=== PATIENT | male | born 1945 | race Caucasian/White ===

== ENCOUNTER 2017-04-17 12:00 | Inpatient (IN) | payer MEDICARE, OTHER ==
[~2017-04-17] VITALS: Ht 175.3 cm; Wt 109.0 kg
[2017-04-24] VITALS (19 sets, daily range): BP systolic 103–124; BP diastolic 58–69; PULSE 49–63; RESP 13–21; Ht 175.3 cm; Wt 109.0 kg
[2017-04-24] MEDS ORDERED: SEVOFLURANE 15 MIN ONE (07:00)
[2017-04-24] MEDS ORDERED: CARV25TA79 PO (12:34)
[2017-04-24] MEDS ORDERED: VALS1TAB80 PO (12:34)
[2017-04-24] MEDS ORDERED: ASPI-664 PO (12:35)
[2017-04-24] MEDS ORDERED: BEN25 PO (12:36)
[2017-04-24] MEDS ORDERED: CEFAZOLIN 2 GM/50 ML (PMX) 50 ML IVPB SCH (13:00)
[2017-04-24] MEDS ORDERED: LACTATED RINGER'S 1,000 ML IV* SCH (13:00)
[2017-04-24] MEDS ORDERED: CEFAZOLIN 1 GM INJ ONE ×2 (15:19→16:10)
[2017-04-24] MEDS ORDERED: SURGIFOAM POWDER 1 GM KIT ONE (15:19)
[2017-04-24] MEDS ORDERED: BUPIVACAINE 0.25% (MPF) 30 ML INJ ONE (15:19)
[2017-04-24] MEDS ORDERED: HEPARIN 1000 UNITS/ML 10 ML INJ ONE (15:20)
[2017-04-24] MEDS ORDERED: CA CHLORIDE 10% 10 ML SYRINGE ONE (15:20)
[2017-04-24] MEDS ORDERED: BUPIVACAINE 0.5%/EPI (SDV) 10 ML INJ ONE (15:20)
[2017-04-24] MEDS ORDERED: THROMBIN 5000 UNIT VIAL ONE (15:20)
[2017-04-24] MEDS: D5W-0.45 NACL + KCL 20 MEQ 1,000 ML IV SCH ×2 (15:35→20:21)
--- NOTE | 2017-04-24 15:35 | HPN ---
Date/Time of Note Date/Time of Note DATE: 04/24/17 TIME: 15:34 Interval H&P Admission Note Pt. seen H&P reviewed: No system changes ADAM FUENTES PA-C Apr 24, 2017 15:35
[2017-04-24] MEDS ORDERED: DIPHENHYDRAMINE 50 MG INJ IV PRN ×2 (16:00→16:30)
[2017-04-24] MEDS ORDERED: HYDROmorphONE 1 MG/ML SYG IV PRN (16:00)
[2017-04-24] MEDS ORDERED: BISACODYL 10 MG SUPP PR PRN (16:00)
[2017-04-24] MEDS ORDERED: CEPASTAT LOZENGE MT PRN (16:00)
[2017-04-24] MEDS ORDERED: NALOXONE (0.4 MG/ML) INJ IV PRN (16:00)
[2017-04-24] MEDS ORDERED: ZOLPIDEM 5 MG TAB PO PRN (16:00)
[2017-04-24] MEDS ORDERED: AL HYDROX/MG HYDROX/SIMETH 30 ML CUP PO PRN (16:00)
[2017-04-24] MEDS: CEFAZOLIN 1 GM/50 ML (PMX) 50 ML IVPB SCH (16:00)
[2017-04-24] MEDS ORDERED: CYCLOBENZAPRINE 10 MG TAB PO PRN (16:00)
[2017-04-24] MEDS ORDERED: HYDROCODONE/APAP (5/325) TAB PO PRN ×2 (16:00)
[2017-04-24] MEDS ORDERED: ONDANSETRON 4 MG INJ IV PRN ×2 (16:00→16:30)
[2017-04-24] MEDS ORDERED: ACETAMINOPHEN 325 MG TAB PO PRN (16:00)
[2017-04-24] MEDS ORDERED: HYDROmorphONE 0.2 MG/ML PCA IV SCH (16:00)
[2017-04-24] MEDS ORDERED: PROPOFOL 20 ML ONE (16:08)
[2017-04-24] MEDS ORDERED: LIDOCAINE 2% (SDV) 5 ML INJ ONE (16:08)
[2017-04-24] MEDS ORDERED: GLYCOPYRROLATE 0.4 MG INJ ONE ×3 (16:08→17:53)
[2017-04-24] MEDS ORDERED: ROCURONIUM 50 MG INJ ONE ×2 (16:08→17:53)
[2017-04-24] MEDS ORDERED: SUCCINYLCHOLINE CHLORIDE 100 MG/5 ML SYG IV ONE (16:08)
[2017-04-24] MEDS ORDERED: NEOSTIGMINE 3 MG/3 ML SYRINGE ONE ×2 (16:08→17:53)
[2017-04-24] MEDS ORDERED: MEPERIDINE 100 MG INJ ONE (16:08)
[2017-04-24] MEDS ORDERED: FENTAnyl 50 MCG/ML VIAL IV PRN ×3 (16:30)
[2017-04-24] MEDS ORDERED: MEPERIDINE 25 MG INJ IV PRN (16:30)
[2017-04-24] MEDS ORDERED: METOCLOPRAMIDE 10 MG INJ IV PRN (16:30)
[2017-04-24] MEDS ORDERED: hydrALAzine 20 MG INJ IV PRN (16:30)
[2017-04-24] MEDS ORDERED: LABETALOL HCL 20MG INJ IV PRN (16:30)
[2017-04-24] MEDS ORDERED: HYDROmorphONE (0.2 MG/ML) 10ML SYG IV PRN ×2 (16:30)
[2017-04-24] MEDS ORDERED: OXYCODONE/ACETAMINOPHEN (5/325) TAB PO PRN ×2 (16:30)
[2017-04-24] MEDS ORDERED: MIDAZOLAM 1 MG/ML 2 ML INJ IV PRN (16:30)
[2017-04-24] MEDS ORDERED: EPHEDrine SULFATE 50 MG/5 ML SYG IV PRN (16:30)
[2017-04-24] MEDS ORDERED: ATROPINE 1 MG/10 ML SYRINGE ONE (16:52)
[2017-04-24] MEDS ORDERED: ONDANSETRON 4 MG INJ ONE (18:20)
[2017-04-24] MEDS ORDERED: POLYMYXIN/BACITRACIN 1L IRRIG IRR ONE (18:41)
--- NOTE | 2017-04-24 19:11 | SIPON ---
Date/Time of Note Date/Time of Note DATE: 04/24/17 TIME: 19:09 Operative Report Preoperative Diagnosis L3-5 stenosis Postoperative Diagnosis L3-5 stenosis Operation/Procedure Performed L3-5 decompression Surgeon Kelley Kinney assist: ADAM FUENTES PA-C Anesthesia Type: general Estimated Blood Loss: 50 - 100 ml's Transfusion Required: no Specimens L3, L4 spinous process Grafts/Implants: none Complications: no DONTA LUCIO MD Apr 24, 2017 19:11
[2017-04-24] MEDS: HYDROmorphONE (0.2 MG/ML) 10ML SYG IV PRN ×3 (19:24→19:36)
--- NOTE | 2017-04-24 20:13 | OPR ---
DATE OF OPERATION: 04/24/2017 PREOPERATIVE DIAGNOSES: 1. Degenerative lumbar scoliosis. 2. L3-4, L4-5 spinal stenosis with radiculopathy. 3. Prostate cancer. POSTOPERATIVE DIAGNOSES: 1. Degenerative lumbar scoliosis. 2. L3-4, L4-5 spinal stenosis with radiculopathy. 3. Prostate cancer. 4. Extradural spinal cyst, intraspinal. PROCEDURES: 1. Central decompressive laminectomy at L3-4 and L4-5 with decompression L3, L4, L5 nerve roots bilaterally. 2. Use of C-arm flash with interpretation without radiologist present. 3. Intraoperative neuro monitoring (2 hours 15 minutes). PRIMARY SURGEON: Dr. Reymundo Benson. THREADING MACHINE TENDER: JEANNETTE Locke. NEED FOR DIRECTOR OF VOCATIONAL TRAINING: A medical or surgical instrument maker was required to retract the neurovascular elements. FINDINGS: Neuro monitoring at the start of the case revealed left L3 and L4 amplitude down 20 percent, left L5 amplitude down 10 percent, right L4 amplitude down 30 percent, right L3 and L5 amplitude down 40 percent. At the end of the case nerve signal returned to normal. Patient had degenerative scoliosis. Patient has severe stenosis with thickening of ligamentum flavum. There appears to be epidural, extradural, intraspinal cyst at both levels causing adherence of the ligamentum to the dura. ESTIMATED BLOOD LOSS: 100 cc. DRAINS: One. SPECIMENS: L3-L4 spinous process. COMPLICATIONS: Procedure none. ANESTHESIOLOGIST: Dr. Mustafa. TYPE OF ANESTHESIA: General. INDICATION FOR PROCEDURE: This is a 72-year-old gentleman with degenerative scoliosis and spinal stenosis. He failed nonoperative measures, therefore, I recommended proceeding with the above mentioned surgery. Preoperatively, discussed risks, benefits, alternatives, he understood, wished to proceed. OPERATIVE PROCEDURE: The patient was identified in the preoperative holding area, given Ancef antibiotics in the operating room, where he was successfully placed under general anesthesia. Neuro monitors were placed. Sequential compressive devices were applied. Camejo catheter was introduced. Neural monitor was utilized during the procedure for 2 hours and 15 minutes to include SSEP, MEP, and EMG. This was performed by [employer]. Start time was 4:45 p.m. closure time was 7 p.m. The patient was placed in the prone position over the Kelvin frame. All bony problems were padded, Bactrim, and prepped and draped usual sterile fashion. The incision site was injected with Marcaine and epinephrine. Incision was then made over the L4-5 level. Incision was taken down to the dorsal fascia and was incised with Bovie cautery. I then subperiosteal dissected the L3, L4 and L5 lamina. I then placed curette under the lamina and took lateral stem using a sterile fluoroscope to identify the levels. Once the levels were identified I used a combination of Chase rongeur, Leksell rongeur, curette and high-speed bur, as well as Kerrison rongeurs to perform a central decompressive laminectomy at the L3-4 and L4-5 level. We decompressed the lateral recess. The ligament flavum was extremely thick and adherent to the dura due to possible synovial cyst. I took quite a bit of time in order to tease this off the dura. I decompressed the L3, L4 and L5 nerve roots bilaterally. Due to the scoliosis and the adherent ligamentum flavum the surgery took an additional 45 minutes. I was able to thoroughly decompress the canal and the nerve roots. At that point, nerve signals returned to normal. Next, I irrigated the wound. Hemostasis with Surgifoam and bipolar cautery. I used bone wax on the bony edges. I placed a deep subfascial drain. I closed the deep fascia with a Strata Fix suture. I then closed subcutaneous tissue with 2-0 Vicryl suture, 4-0 Monocryl closure then performed. Dermabond and a sterile dressing was then applied. The patient was then awakened from anesthesia, taken recovery stable condition. Lap, sponge, and counts correct times 2. No apparent complications during this procedure. The patient will be admitted to orthopedic [facility] for routine postoperative care to include pain control, antibiotics and physical therapy. Dictated By: Reymundo Benson MD /sunni/lyndsey /Document#: [id number] DALLIN
[2017-04-24] MEDS: DOCUSATE SODIUM 100 MG CAP PO SCH (20:21)
[2017-04-25] VITALS (7 sets, daily range): BP systolic 103–131; BP diastolic 53–80; PULSE 56–78; RESP 17–22
[2017-04-25] MEDS: CEFAZOLIN 1 GM/50 ML (PMX) 50 ML IVPB SCH ×4 (00:06→16:22)
[2017-04-25] MEDS ORDERED: DIPHENHYDRAMINE 25 MG CAP PO PRN (00:30)
[2017-04-25] MEDS: D5W-0.45 NACL + KCL 20 MEQ 1,000 ML IV SCH ×4 (01:35→21:35)
[2017-04-25 05:22] LABS: BASOPHILS % 0.5 % (0.0-2.0); EOSINOPHILS % 0.5 % (0.0-7.0); HEMATOCRIT 38.3 % (42.0-52.0); HEMOGLOBIN 12.8 g/dl (14.0-18.0); LYMPHOCYTES # 1.1 10^3/ul (0.8-2.9); LYMPHOCYTES % 13.8 % (15.0-51.0); MEAN CORPUSCULAR HEMOGLOBIN 34.2 pg (29.0-33.0); MEAN CORPUSCULAR HGB CONC 33.4 g/dl (32.0-37.0); MEAN CORPUSCULAR VOLUME 102.4 fl (82.0-101.0); MEAN PLATELET VOLUME 10.2 fl (7.4-10.4); MONOCYTE # 0.7 10^3/ul (0.3-0.9); MONOCYTES % 9.1 % (0.0-11.0); NEUTROPHIL # 5.9 10^3/ul (1.6-7.5); NEUTROPHILS % 75.8 % (39.0-77.0); PLATELET COUNT 289 10^3/UL (140-415); RED BLOOD COUNT 3.74 10^6/ul (4.70-6.10); RED CELL DISTRIBUTION WIDTH 13.2 % (11.5-14.5); WHITE BLOOD COUNT 7.8 10^3/ul (4.8-10.8)
[2017-04-25 05:41] LABS: CREATININE 0.76 mg/dl (0.61-1.24); MAGNESIUM 2.1 mg/dl (1.7-2.5); POTASSIUM 4.1 mmol/L (3.5-5.1)
[2017-04-25] MEDS: VALSARTAN 160 MG TAB PO SCH (09:00)
--- NOTE | 2017-04-25 09:09 | CONS ---
DATE OF ADMISSION: 04/17/2017 DATE OF CONSULTATION: DATE OF SERVICE: 04/12/2017 REASON FOR CONSULTATION: Thank you very much for allowing me to evaluate this 72-year-old male in anticipation for lumbar back surgery for the treatment of neurogenic claudication. HISTORICAL EVENTS: As you well know, this patient has had at least 1 year history of pain involving his thighs with attempting to walk with minimal of any low back pain. Today preoperatively, he denied cough, wheezing, shortness of breath, substernal chest pain, radiating neck, arm or jaw discomfort. He denies nausea, vomiting, abdominal pain, unusual constipation or diarrhea. Denies symptoms of gastrointestinal bleeding with the absence of urinary frequency or urgency. He does have some urge incontinence without flank pain, fever or chills. MEDICATION: Present medications include: 1. Metamucil daily. 2. Vitamin D 50,000 units monthly. 3. Coreg 25 mg b.i.d. 4. Valsartan hydrochlorothiazide 320/12.5 mg, having discontinued aspirin. PAST MEDICAL HISTORY: Includes nuclear treadmill in December 2011 that was normal. Undergoing preoperative cardiac evaluation tomorrow. Last colonoscopy was in January 2013 that was normal. Prostate CA undergoing robotic prostatectomy in July 2012. Hypertension, controlled. History of elevated CPK, statin treatment was interrupted until total resolution of the sane. ALLERGIES: NONE. FAMILY HISTORY: Positive for breast cancer and hyperlipidemia. SOCIAL HISTORY: He does drink a modest amount of alcohol. Does not smoke. Retired. PHYSICAL EXAMINATION: GENERAL: A spry male no acute distress. VITAL SIGNS: BP 123/72, respirations were 18. He was afebrile. HEENT: Eyes, extraocular muscles were full. Nose, mouth and throat were normal. NECK: Was supple. There was no jugular venous distention, thyroid enlargement, adenopathy. Carotids 2+, no bruits. LUNGS: Clear. HEART: Rhythm regular. No murmur. No 3rd or 4th sound. ABDOMEN: Nontender. Liver and spleen were not palpable. No mass or tenderness were noted. EXTREMITIES: No edema. Calves nontender. Pulses 2+. NEUROLOGIC: No lateralizing motor weakness. IMPRESSION: I foresee no problems with your planned surgical intervention pending labs and will follow him with you postoperatively. Dictated By: Demarco Gomez MD /sunni/micaela /Document#: [id number]
[2017-04-25] MEDS: DOCUSATE SODIUM 100 MG CAP PO SCH ×2 (09:25→20:07)
--- NOTE | 2017-04-25 09:53 | CONS ---
DATE OF ADMISSION: 04/24/2017 DATE OF CONSULTATION: 04/25/[address] Benson: Thank you very much for allowing me to evaluate the above patient, a 72-year-old male who just underwent lumbar laminectomy for the treatment of neurogenic claudication. HISTORICAL EVENTS: As you well know, this patient has had a least a 6-9 month history of pain involving his buttocks and legs with attempted ambulation, especially when walking up a hill. Importantly, at rest, he had no significant back pain, buttocks pain or radicular leg pain. He presently denies cough, wheezing, shortness of breath, nausea, vomiting, abdominal or chest pain. PAST MEDICAL HISTORY: Includes: 1. Preop cardiac eval including echo and nuclear stress study that revealed no evidence of ischemia. 2. Undergoing robotic prostatectomy in July 2012 for prostate cancer. 3. Hyperlipidemia. 4. Overweight. 5. History of left foot plantar fasciitis. 6. Hypertension that has been well controlled. 7. A slight elevation of the CPK, asymptomatic, without change with discontinuing statins. FAMILY HISTORY: Positive for hyperlipidemia and breast cancer. SOCIAL HISTORY: Does not smoke. Does drink alcohol. . Was involved in a [employer]. Presently retired. MEDICATION: 1. Psyllium powder each day. 2. Vitamin D3, 2000 units per day. 3. Coreg 25 mg b.i.d. 4. Valsartan 320/12.5 per day. ALLERGIES: NONE. PHYSICAL EXAMINATION: GENERAL APPEARANCE: [place] male, no acute distress. VITAL SIGNS: BP 122/70, respirations are 18. He was afebrile. HEENT: Eyes: Extraocular muscles were full. Nose, mouth and throat were normal. NECK: Supple without jugular venous distention, thyroid enlargement, adenopathy. LUNGS: Clear. HEART: Rhythm regular. No murmur. No 3rd or 4th sound. ABDOMEN: Nontender. Liver and spleen were not palpable. No mass or tenderness were noted. EXTREMITIES: No edema. Calves nontender. Pulses 2+. NEUROLOGIC: No lateralizing motor weakness. IMPRESSION: 1. Stable postop lumbar laminectomy. 2. History of hypertension. Blood pressure now is normal. We will not continue blood pressure meds if systolic less than 120. 3. We will evaluate daily for signs and symptoms of thromboembolic disease. 4. Hyperlipidemia. Statin to be resumed. Dictated By: Demarco Gomez MD /sunni/karen /Document#: [id number]
--- NOTE | 2017-04-25 11:34 | PN ---
Date/Time of Note Date/Time of Note DATE: 04/25/17 TIME: 11:32 Assessment/Plan Lines/Catheters IV Catheter Type (from Nrs): Saline Lock Camejo in Place (from Nrsg): No Assessment/Plan Assessment/Plan doing well cont PT will measure drain output this afternoon. If able to pull HV then patient may go home today Subjective 24 Hr Interval Summary doing well Exam/Review of Systems Vital Signs Vitals Vital Signs Date Time Temp Pulse Resp B/P Pulse Ox O2 Delivery O2 Flow Rate FiO2 04/25/17 07:15 98.6 86 22 104/56 93 04/25/17 06:10 Room Air 04/25/17 04:00 2.0 Intake and Output 04/24/17 04/24/17 04/25/17 15:00 23:00 07:00 Intake Total 900 ml 1400 ml Output Total 135 ml 720 ml Balance 765 ml 680 ml Exam Free Text/Dictation nvi Results Result Diagram: 04/25/17 0427 04/25/17 0427 DONTA LUCIO MD Apr 25, 2017 11:34
--- NOTE | 2017-04-25 12:50 | RADRPT ---
PROCEDURE: Intraoperative fluoroscopy. CLINICAL INDICATION: Intraoperative fluoroscopy. COMPARISON: None relevant listed. TECHNIQUE: Intraoperative fluoroscopy of the lumbar spine was performed. Fluoroscopy time: 8.6 seconds # Series / Images: 3 FINDINGS: Intraoperative fluoroscopy was provided for surgical planning and support purposes. Suspected change s related to L3-L4 and L4-L5 decompression. IMPRESSION: 1. Intraoperative fluoroscopy was provided for surgical planning and support purposes. 2. Alignment is anatomic. RPTAT: [facility] Physician Ruben Date Time Electronically viewed and signed by Physician Ruben on 04/25/2017 12:50 LG/
[2017-04-25] MEDS ORDERED: ATORVASTATIN 10 MG TAB PO SCH (21:00)
[2017-04-26 01:22] VITALS: BP 102/62; RESP 18
[2017-04-26] MEDS: D5W-0.45 NACL + KCL 20 MEQ 1,000 ML IV SCH (07:35)
--- NOTE | 2017-04-26 07:51 | CONS ---
Date/Time of Note Date/Time of Note DATE: 04/26/17 TIME: 07:49 Assessment/Plan Assessment/Plan Additional Assessment/Plan 1. Doing well post op laminectomy now without claudication when walking. 2. Hx HBP, controlled 3. Can dc per ortho and PT Consultation Date/Type/Reason Admit Date/Time Apr 24, 2017 at 12:00 Initial Consult Date Detailed Summary Respiratory: cough (that is not productive), No shortness of breath Cardiovascular: No chest pain, No edema, No lightheadedness, No orthopenea Gastrointestinal: no complaints Genitourinary: no complaints Musculoskeletal: back pain (mild and no pain in his legs when walking) Exam/Review of Systems Vital Signs Vitals Vital Signs Date Time Temp Pulse Resp B/P Pulse Ox O2 Delivery O2 Flow Rate FiO2 04/26/17 05:16 18 04/26/17 01:22 98.8 75 102/62 97 04/25/17 20:35 Room Air 04/25/17 04:00 2.0 Intake and Output 04/25/17 04/25/17 04/26/17 15:00 23:00 07:00 Intake Total 1160 ml 2500 ml Output Total 10 ml 945 ml 1810 ml Balance -10 ml 215 ml 690 ml Exam Neck: No jvd Respiratory: clear to auscultation Cardiovascular: regular rate and rhythm Gastrointestinal: soft Extremities: No edema (and no calf tend) Results Result Diagram: 04/25/17 0427 04/25/17 0427 Medications Medications Current Medications Potassium Chloride/Dextrose/ Sod Cl (D5-1/2ns + KCl 20 Meq) 1,000 ml @ 100 mls/ hr Q10H IV Last administered on 04/25/17t 19:01; Admin Dose 100 MLS/HR; Start 04/24/17 at 15:35 Acetaminophen/ Hydrocodone Bitart ([place] (5/325)) 1 tab Q4H PRN PO PAIN LEVEL 1 -5; Start 04/24/17 at 16:00 Acetaminophen/ Hydrocodone Bitart ([place] (5/325)) 2 tab Q4H PRN PO PAIN LEVEL 6 -10; Start 04/24/17 at 16:00 Hydromorphone HCl (Dilaudid) 0.2 mg Q1H PRN IV BREAKTHROUGH PAIN; Start at 16:00 Ondansetron HCl (Zofran Inj) 4 mg Q6H PRN IV NAUSEA AND/OR VOMITING; Start at 16:00 Bisacodyl (Dulcolax Supp) 10 mg DAILY PRN CA CONSTIPATION; Start 04/24/17 at 16 :00 Docusate Sodium (Colace) 100 mg BID PO Last administered on 04/25/17 20:07; Admin Dose 100 MG; Start 04/24/17 at 21:00 Al Hydrox/Mg Hydrox/Simethicone (Mag-Al Plus) 15 ml Q6H PRN PO CONSTIPATION/ DYSPEPSIA; Start 04/24/17 at 16:00 Acetaminophen (Tylenol Tab) 650 mg Q4H PRN PO JONES OR TEMP GREATER THAN 101.3F; Start 04/24/17 at 16:00 Cyclobenzaprine HCl (Flexeril) 5 mg TID PRN PO MUSCLE SPASMS; Start 04/24/17 at 16:00 Phenol (Cepastat Lozenge) 1 lozenge PRN PRN MT SORE THROAT Last administered on 04/25/17 07:08; Admin Dose 2 LOZENGE; Start 04/24/17 at 16:00 Diphenhydramine HCl (Benadryl) 25 mg Q6H PRN IV ITCHING; Start 04/24/17 at 16: 00 Naloxone HCl (Narcan) 0.2 mg Q2M PRN IV RR 8 BREATHS/MIN OR LESS; Start at 16:00 Hydromorphone HCl (Dilaudid HARDWARE ASSEMBLER) HARDWARE ASSEMBLER to be started in PACU Q4PCA IV Last administered on 04/24/17 19:25; Admin Dose 6 MG; Start 04/24/17 at 16:00 Miscellaneous Information 1. Hold HARDWARE ASSEMBLER at 1,000... HARDWARE ASSEMBLER IV ; Start 04/24/17 at 16: 00 Carvedilol (Coreg) 25 mg BID PO Last administered on 04/25/17 20:08; Admin Dose 25 MG; Start 04/25/17 at 00:30 Diphenhydramine HCl (Benadryl) 25 mg QHS PRN PO SLEEP; Start 04/25/17 at 00:30 Valsartan (Diovan) 320 mg DAILY PO ; Start 04/25/17 at 09:00 Atorvastatin Calcium (Lipitor) 10 mg HS PO Last administered on 04/25/17t 20:08 ; Admin Dose 10 MG; Start 04/25/17 at 21:00 ALPHONSO MAYORGA MD Apr 26, 2017 07:51
[2017-04-26 07:52] VITALS: BP 145/67; RESP 14
[2017-04-26] MEDS: DOCUSATE SODIUM 100 MG CAP PO SCH (09:32)
[2017-04-26] MEDS: VALSARTAN 160 MG TAB PO SCH (09:33)
--- NOTE | 2017-04-26 21:27 | DS ---
DATE OF ADMISSION: 04/24/2017 DATE OF DISCHARGE: 04/26/2017 ADMITTING DIAGNOSIS: Spinal stenosis. DISCHARGE DIAGNOSIS: Spinal stenosis. PROCEDURE: Patient was taken to the operating room on 04/24, underwent lumbar decompression. HOSPITAL COURSE: Patient admitted to Orthopedic floor after undergoing the procedure. His postop course was uncomplicated. By postoperative day 2, he was deemed stable for discharge. Followup arranged with undersigned. Dictated By: Reymundo Benson MD /sunni/junaid /Document#: [id number] DALLIN
== END 2017-04-26 14:03 | disposition home or self-care (01) | DRG 515 ==
LOC: REC 04-24 12:00 → MS1 04-24 20:11
PROVIDERS: ADMIT Specialist; ATTEND Specialist
PROC: 01NB0ZZ Release Lumbar Nerve, Open Approach (ICD-10-PCS; principal; 2017-04-24 15:30)
DX: M48.06 Spinal stenosis, lumbar region (principal); G95.19 Other vascular myelopathies; C61 Malignant neoplasm of prostate; M41.86 Other forms of scoliosis, lumbar region; G96.19 Other disorders of meninges, not elsewhere classified; E78.5 Hyperlipidemia, unspecified; I10 Essential (primary) hypertension; E66.3 Overweight; Z68.35 Body mass index [BMI] 35.0-35.9, adult
CPT/HCPCS: 72100; 80048; 83735; 85025; 86850; 86900; 86901; 86920; 86999; 88304; 97116; 97164; 97530; J0461; J0690; J1170; J1644; J2175; J2405; J2710; J3480; J7999